=== PATIENT | male | born 1940 | race Caucasian/White ===

== ENCOUNTER 2018-03-02 10:57 | Emergency (ER) | payer MEDICARE, BC ==
[~2018-03-02] VITALS: Ht 175.3 cm; Wt 72.6 kg
[~2018-03-02 10:57] MED LIST: ACET325 PO; ALBIPROI INH; ALBU90OI INH; ALEN70 PO; ALL DAY ALLERGY10 M1 PO; ALLEGRA ALLERG180 M1; AMIT50 PO; ANAS1 PO; ANDROGEL75 GM; ASPI81CH PO; Allegra-D 24 H1 EACH PO; Anastrozole1 GM PO; BECL80OI INH; BENTYL; BUDE32NIS; BUDE6HFA INH; BUDESONIDE PO; CALCIT950 PO; CENTRUM SILVER1 EAC2 PO; CIPR500 PO; CLOB.05TC TOP; COMBIVENT RESPIM4 GM INH; CYAN1000 PO; CYAN1000I IM; DELTASONE20 MG PO; DHEA PO; DICY20 PO; DIPATR; DIPATR PO; DOXE10 PO; DUTA.5 PO; ENTOCORT PO; FINA5 PO; FISH1000 PO; FLUSAL1005 IH; FLUSAL115; FLUSAL2505 INH; FOLATE PO; FOLI400 PO; FURO40 PO; HYDACE5 PO; HYDACE7.5 PO; HYDHCL25 PO; HYDMOR2 PO; HYDPAM50 PO; IPRA.06NI; IPRAOI; LAVAP17G PO; LEVO750 PO; LEVOCETIRIZINE D5 MG PO; MELA3 PO; MENTAX; MENTAX TOP; MERC50 PO; METO25ER PO; METTREX2.5 PO; MULVITMINE PO; MULVITMINF PO; Micro-K10 MEQ; NASACORT10.8 ML; NICO2 PO; OMEPRAZOLE MAGN20 MG PO; OTEZLA30 MG; POLY17UD PO; POTCHL10ER PO; PRED20 PO; PREG200; PREG200 PO; PROBIOTICS PO; QVAR7.3 G1 IH; SAW PALMETO PO; SAW PALMETTO EXTRACT; SELENIUM200 MC1 PO; SELENIUM200 MC2; SKIEMOTL12; SKIEMOTL12 TOP; TAMS.4ER PO; TRAM50 PO; TRAZ150T57 PO; TRAZ50 PO; TRIA80TC TOP; VENL150ER PO; VITNEPH PO; ZINC15; ZINC15 PO; [UNRECOGNIZED DRUG - OTHER]; [UNRECOGNIZED DRUG - OTHER] PO; [UNRECOGNIZED DRUG - OTHER] PO
== END 2018-03-02 14:22 | disposition home or self-care (01) ==
LOC: ER 10:57
DX: M54.5 Low back pain (principal); M54.6 Pain in thoracic spine; Z88.8 Allergy status to other drugs, medicaments and biological substances; Z88.6 Allergy status to analgesic agent; Z91.018 Allergy to other foods; Z88.5 Allergy status to narcotic agent; Z79.899 Other long term (current) drug therapy; Z79.82 Long term (current) use of aspirin; Z87.891 Personal history of nicotine dependence
CPT/HCPCS: 72070; 72100

== ENCOUNTER → 2018-11-14 | Outpatient (CLI) | payer MEDICARE, BC | END | disposition home or self-care (01) | LOC: LAB EV 20:40 | DX: J44.9 Chronic obstructive pulmonary disease, unspecified (principal) | CPT/HCPCS: 87070; 87205 ==

== ENCOUNTER → 2018-12-27 | Outpatient (CLI) | payer MEDICARE, BC | END | disposition home or self-care (01) | LOC: PLD 07:30 → LAB SHORT 07:30 | DX: D04.62 Carcinoma in situ of skin of left upper limb, including shoulder (principal) | CPT/HCPCS: 88305 ==

== ENCOUNTER → 2019-02-04 | Outpatient (CLI) | payer MEDICARE, BC | END | disposition home or self-care (01) | LOC: LAB SHORT 07:49 → PLD 07:49 | DX: D03.39 Melanoma in situ of other parts of face (principal) | CPT/HCPCS: 88305 ==

== ENCOUNTER → 2019-11-05 | Outpatient (CLI) | payer MEDICARE, BC ==
[~2019-11-05] MED LIST changes: +ALBU3IS INH; +ASCO500 PO; +Biotin10 MG PO; +CEFUROXIME PO; +FISH OIL PO; +HYDMOR4 PO; +IODINE PO; +IRON PO; +MELO7.5 PO; +Nicotine Gum2 MG BC; +POTA10T PO; +PREDNISONE; +Prednisone10 MG PO; +SELENIUM200 MCG PO; +STOOL SOFTENER PO; +TOLT2ER PO; +TRELEGY ELLIPT1 EACH INH; +VITAMIN B12 INJ; +[UNRECOGNIZED DRUG - OTHER] PO
== END | disposition home or self-care (01) ==
LOC: LAB 09:30 → LAB SHORT 09:30 → LAB FUT 10-29 16:10 → EDSTATUS 10-29 16:10
DX: J44.1 Chronic obstructive pulmonary disease with (acute) exacerbation (principal)
CPT/HCPCS: 87070; 87205

== ENCOUNTER → 2019-12-17 | Outpatient (CLI) | payer MEDICARE, BC | END | disposition home or self-care (01) | LOC: LAB SHORT 12:45 → LAB 12:45 | DX: J44.9 Chronic obstructive pulmonary disease, unspecified (principal) | CPT/HCPCS: 87070; 87077; 87185; 87205 ==

== ENCOUNTER → 2020-08-31 | Outpatient (CLI) | payer MEDICARE, BC | END | disposition home or self-care (01) | LOC: LAB SHORT 07:26 → PLD 07:26 | DX: C44.222 Squamous cell carcinoma of skin of right ear and external auricular canal (principal) | CPT/HCPCS: 88305; 88341; 88342 ==

== ENCOUNTER 2021-04-14 09:08 | Day surgery (SDC) | payer MEDICARE, BC ==
[~2021-04-14] VITALS: Ht 172.7 cm; Wt 65.2 kg
--- NOTE | 2021-04-14 09:57 | NUR ---
Ambulatory in Day Surgery History, Chart, Medications and Allergies reviewed before start of procedure. Lungs clear T/O to Auscultation. Patient confirms NPO status and agrees with scheduled surgery. Pre-Op teaching done. Pt verbalizes understanding. Patient States Post-Procedure ride home has been arranged.
[2021-04-14] MEDS ORDERED: TAMS.4ER PO (10:03)
[2021-04-14] MEDS ORDERED: MIRALAX17 GM (10:25)
[2021-04-14] MEDS ORDERED: PSYSENPA PO (10:25)
[2021-04-14] MEDS ORDERED: BUDE.25 INH (10:26)
[2021-04-14] MEDS ORDERED: Prednisone10 MG PO (10:29)
[2021-04-14] MEDS ORDERED: Purinethol50 MG (10:30)
[2021-04-14] MEDS ORDERED: DIPATR PO (10:30)
[2021-04-14] MEDS ORDERED: DICY20 PO (10:31)
[2021-04-14] MEDS ORDERED: TIZA4 PO (10:31)
[2021-04-14] MEDS ORDERED: DICLOFENAC SOD100 GM TP (10:32)
[2021-04-14] MEDS ORDERED: TRAM50 PO (10:32)
[2021-04-14] MEDS ORDERED: COMBIVENT RESPIM4 G1 (10:33)
[2021-04-14] MEDS ORDERED: SYMBICORT 160-4.6 GM (10:33)
[2021-04-14] MEDS ORDERED: MAGNESIUM COMP300 MG PO (10:34)
--- NOTE | 2021-04-14 10:35 | NUR ---
04/14/21 1035 Rufina Hartman HISTORY,CHART, MEDICATIONS AND ALLERGIES REVIEWED BEFORE START OF PROCEDURE. PATIENT CONFIRMS NPO STATUS AND AGREES WITH SCHEDULED PROCEDURE. 3-LEAD EKG REVIEWED WITH PHYSICIAN PRIOR TO START OF PROCEDURE. MONITOR INTACT WITH CONTINUOUS PULSE OXIMETRY AND INTERMITTENT BP. SUPPLEMENTAL O2 TO BE TITRATED THROUGHOUT PROCEDURE TO MAINTAIN O2 SATURATION ABOVE 90%. PATIENT DETERMINED TO BE ASA APPROPRIATE FOR MODERATE SEDATION PRIOR TO START OF PROCEDURE BY . Bite Block Placed & REMOVED AT END OF CASE.
[2021-04-14] MEDS ORDERED: VITAMIN D310 MC4 (10:36)
[2021-04-14] MEDS ORDERED: CALCIUM CIT 311 EACH (10:36)
[2021-04-14] MEDS ORDERED: VITAMIN K2100 MCG (10:36)
[2021-04-14] MEDS ORDERED: FLAX (10:37)
[2021-04-14] MEDS ORDERED: PROBIOTIC1 EA13 (10:37)
== END 2021-04-14 12:08 | disposition home or self-care (01) ==
LOC: ORSCMMR 09:08 → ORD 10:00 → ORSCMMR 10:00
PROVIDERS: Internal Medicine Gastroenterology
PROC: 0DB48ZX Excision of Esophagogastric Junction, Via Natural or Artificial Opening Endoscopic, Diagnostic (ICD-10-PCS; principal; 2021-04-14 10:00)
PROC: 0D758ZZ Dilation of Esophagus, Via Natural or Artificial Opening Endoscopic (ICD-10-PCS; principal; 2021-04-14 10:00)
PROC: 0DB78ZX Excision of Stomach, Pylorus, Via Natural or Artificial Opening Endoscopic, Diagnostic (ICD-10-PCS; principal; 2021-04-14 10:00)
DX: R13.14 Dysphagia, pharyngoesophageal phase (principal); K29.70 Gastritis, unspecified, without bleeding; K44.9 Diaphragmatic hernia without obstruction or gangrene; G47.33 Obstructive sleep apnea (adult) (pediatric); J44.9 Chronic obstructive pulmonary disease, unspecified; Z79.899 Other long term (current) drug therapy; Z87.891 Personal history of nicotine dependence
CPT/HCPCS: 88305; 88342; A9270; C1726; J2250; J3010; J7120

== ENCOUNTER 2021-05-07 11:07 | Day surgery (SDC) | payer MEDICARE, BC ==
[~2021-05-07] VITALS: Ht 172.7 cm; Wt 63.5 kg
[~2021-05-07 11:07] MED LIST changes: +BUDE.25 INH; +CALCIUM CIT 311 EACH; +COMBIVENT RESPIM4 G1; +DICLOFENAC SOD100 GM TP; +FLAX; +MAGNESIUM COMP300 MG PO; +MIRALAX17 GM; +PROBIOTIC1 EA13; +PSYSENPA PO; +Purinethol50 MG; +SYMBICORT 160-4.6 GM; +TIZA4 PO; +VITAMIN D310 MC4; +VITAMIN K2100 MCG
--- NOTE | 2021-05-07 13:10 | NUR ---
Ambulatory in Day Surgery. History, Chart, Medications and Allergies reviewed before start of procedure. Lungs clear T/O to Auscultation. Patient confirms NPO status and agrees with scheduled surgery. Pre-Op teaching done. Pt verbalizes understanding. Patient States Post-Procedure ride home has been arranged WITH GIVING HIM A RIDE HOME.
--- NOTE | 2021-05-07 13:31 | NUR ---
PT REFUSED TO COMPLETE PART OF MEDICAL HX, REPORTS WILL NOT COMPLETE ANY MORE THAT HE HAS ALREADY DONE THIS 3 WEEKS AGO.
--- NOTE | 2021-05-07 17:44 | NUR ---
FLACC SCALE I WOULD RATE 0 PT VERY TALKATIVE ABOUT HIS LIFE WHERE HE LIVED AND HAS TRAVELED P[place]AS[place] OFFERS NO COMPLAINT UNLESS I ASK HIM TO RATE PAIN
--- NOTE | 2021-05-07 18:44 | NUR ---
Patient up to Ambulate independently. Gait steady. Discharge instructions reviewed with patient. Patient verbalizes understanding. Copy given to patient to take home. Discharged via wheelchair to private car for ride home.
== END 2021-05-07 23:15 | disposition home or self-care (01) ==
LOC: ORSCMMR 11:07 → ORD 12:30 → ORSCMMR 23:15
PROVIDERS: Surgery
PROC: 0YU64JZ Supplement Left Inguinal Region with Synthetic Substitute, Percutaneous Endoscopic Approach (ICD-10-PCS; principal; 2021-05-07 12:30)
PROC: 8E0W4CZ Robotic Assisted Procedure of Trunk Region, Percutaneous Endoscopic Approach (ICD-10-PCS; principal; 2021-05-07 12:30)
DX: K40.91 Unilateral inguinal hernia, without obstruction or gangrene, recurrent (principal); K41.90 Unilateral femoral hernia, without obstruction or gangrene, not specified as recurrent; I25.10 Atherosclerotic heart disease of native coronary artery without angina pectoris; I10 Essential (primary) hypertension; E78.5 Hyperlipidemia, unspecified; J45.909 Unspecified asthma, uncomplicated; J44.9 Chronic obstructive pulmonary disease, unspecified; Z79.899 Other long term (current) drug therapy; Z87.891 Personal history of nicotine dependence
CPT/HCPCS: 49651; S2900; A9270; C1781; J0690; J1100; J1170; J1885; J2250; J2370; J2405; J2704; J3010; J7120

== ENCOUNTER → 2021-12-16 | Outpatient (CLI) | payer MEDICARE, BC ==
[~2021-12-16] MED LIST changes: +BIOTIN5 MG PO; +BUDESONIDE EC3 M1 PO; +COMBIVENT RESPIM4 G1 INH; +Clobetasol Prop50 GM TOP; +IPRAT-ALBUT 0.5-3 ML INH; +IPRATROPIUM BRO15 ML; +KLOR-CON 1010 ME1 PO; +OMEP20ER PO; +PRED5 PO; +TRIA15CR3 TOP
== END | disposition home or self-care (01) ==
LOC: PLD 15:05 → LAB SHORT 15:05
DX: D48.5 Neoplasm of uncertain behavior of skin (principal)
CPT/HCPCS: 88305

== ENCOUNTER → 2022-01-10 | Outpatient (CLI) | payer MEDICARE, BC | END | disposition home or self-care (01) | LOC: LAB SHORT 07:26 → LAB 07:26 | DX: D49.2 Neoplasm of unspecified behavior of bone, soft tissue, and skin (principal) | CPT/HCPCS: 88305 ==

== ENCOUNTER → 2022-02-28 | Outpatient (CLI) | payer MEDICARE, BC | END | disposition home or self-care (01) | LOC: LAB SHORT 08:01 | DX: C44.612 Basal cell carcinoma of skin of right upper limb, including shoulder (principal); L82.1 Other seborrheic keratosis | CPT/HCPCS: 88305 ==

== ENCOUNTER → 2022-04-26 | Outpatient (CLI) | payer MEDICARE, BC ==
[2022-04-26 13:04] LABS: Stool Occult Bld Immuno 1 Negative (NEGATIVE)
== END | disposition home or self-care (01) ==
LOC: LAB 09:50 → LAB SHORT 09:50
PROVIDERS: Internal Medicine Gastroenterology
DX: Z12.11 Encounter for screening for malignant neoplasm of colon (principal)
CPT/HCPCS: G0328

== ENCOUNTER → 2022-11-15 | Outpatient (CLI) | payer MEDICARE, BC | LOC: LAB 10:15 → LAB SHORT 10:15 | DX: R05.1 Acute cough (principal) | CPT/HCPCS: 87070; 87205 ==

== ENCOUNTER → 2022-12-20 | Outpatient (CLI) | payer MEDICARE, BC | LOC: LAB SHORT 09:03 → LAB 09:03 → PLD 09:03 | DX: C44.519 Basal cell carcinoma of skin of other part of trunk (principal); L57.0 Actinic keratosis | CPT/HCPCS: 88305 ==

== ENCOUNTER → 2023-04-06 | Outpatient (CLI) | payer MEDICARE, BC | LOC: LAB 08:35 → LAB SHORT 08:35 → PLD 08:35 | DX: D49.2 Neoplasm of unspecified behavior of bone, soft tissue, and skin (principal) | CPT/HCPCS: 88305 ==

== ENCOUNTER → 2023-09-13 | Outpatient (CLI) | payer MEDICARE, BC | LOC: LAB SHORT 14:57 → LAB 14:57 | DX: D48.5 Neoplasm of uncertain behavior of skin (principal) | CPT/HCPCS: 88305 ==

== ENCOUNTER 2023-11-30 11:50 | Emergency (ER) | payer MEDICARE, BC ==
[~2023-11-30] VITALS: Ht 172.7 cm; Wt 59.0 kg
[2023-11-30 12:39] LABS: BASOPHILS ABSOLUTE AUTO 0.05 K/mm3 (0.00-0.23); BASOPHILS PERCENT AUTO 0 % (0-2); EOSINOPHILS ABSOLUTE AUTO 0.32 K/mm3 (0.00-0.68); EOSINOPHILS PERCENT AUTO 2 % (0-6); Hematocrit 39.6 % (37.0-53.0); IMMATURE GRAN ABSOLUTE AUTO 0.06 K/mm3 (0.00-0.10); IMMATURE GRAN PERCENT AUTO 0 % (0-1); LYMPHOCYTES PERCENT AUTO 3 % (21-46); MONOCYTES ABSOLUTE AUTO 0.39 K/mm3 (0.16-1.47); MONOCYTES PERCENT AUTO 3 % (4-13); Mean Corpuscular HGB 32.8 pg (26.0-34.0); Mean Corpuscular HGB Conc 35.4 g/dL (31.5-36.5); Mean Corpuscular Volume 93 fL (80-100); Mean Platelet Volume 9.1 fL (9.1-12.4); NEUTROPHILS ABSOLUTE AUTO 13.96 K/mm3 (1.96-9.15); NEUTROPHILS PERCENT AUTO 92 % (41-73); Platelet Count 273 K/mm3 (150-400); RDW Coefficient Variation 15.9 % (11.7-14.2); RDW Standard Deviation 52.8 fL (35.1-46.3); Red Blood Cell Count 4.27 M/mm3 (4.30-5.90); White Blood Cell Count 15.18 K/mm3 (4.00-11.30)
[2023-11-30 13:02] LABS: Albumin, Blood 3.9 g/dL (3.4-5.0); Albumin/Globulin Ratio 1.3 (0.8-1.8); Bilirubin, Total 0.9 mg/dL (0.1-1.0); Bun/Creatinine Ratio 20.6 (12.0-20.0); Calcium, Blood 9.6 mg/dL (8.5-10.1); Creatinine, Blood 0.68 mg/dL (0.60-1.20); Globulin, Blood 2.9 g/dL (2.2-4.0); Potassium, Blood 4.9 mmol/L (3.5-5.5); Total Protein, Blood 6.8 g/dL (6.4-8.2)
[2023-11-30] MEDS ORDERED: Ipratropium/Albuterol SulF 2.5-0.5MG/3 ML Amp INH ONE (13:40)
[2023-11-30 13:58] LABS: Base Excess Venous 6.6 mmol/L; Bicarbonate Venous 28.4 mmol/L (24.0-30.0); PCO2 Venous 56.6 mmHg (38-42); pH Blood Venous 7.36 (7.34-7.37)
[2023-11-30 14:45] VITALS: BP 130/68
[2023-11-30] MEDS ORDERED: AMOCLA875 PO (14:50)
== END 2023-11-30 15:45 | disposition home or self-care (01) ==
LOC: ER 11:50
PROVIDERS: Emergency Medicine; Physician Assistant
DX: J44.1 Chronic obstructive pulmonary disease with (acute) exacerbation (principal); Z88.8 Allergy status to other drugs, medicaments and biological substances; Z88.6 Allergy status to analgesic agent; Z88.1 Allergy status to other antibiotic agents; Z79.899 Other long term (current) drug therapy; Z79.52 Long term (current) use of systemic steroids; M19.90 Unspecified osteoarthritis, unspecified site; I10 Essential (primary) hypertension; Z87.891 Personal history of nicotine dependence
CPT/HCPCS: 71046; 80053; 82803; 83880; 84484; 85025; 93005; 93010; 94640; 94664; 99285-25

== ENCOUNTER → 2024-04-26 | Outpatient (CLI) | payer MEDICARE, BC ==
[~2024-04-26] MED LIST changes: +AMOCLA875 PO
== END ==
LOC: LAB 08:08 → LAB SHORT 08:08
DX: D48.5 Neoplasm of uncertain behavior of skin (principal)
CPT/HCPCS: 88305

== ENCOUNTER → 2024-11-25 | Outpatient (CLI) | payer MEDICARE, BC | LOC: LAB SHORT 14:30 → LAB 14:30 | DX: L08.0 Pyoderma (principal) | CPT/HCPCS: 87070; 87077; 87147; 87186; 87205 ==